=== PATIENT | female | born 1945 | race Caucasian/White ===

== ENCOUNTER 2017-02-19 07:00 | Day surgery (SDC) | payer MEDICARE, OTHER ==
[2017-02-18 10:23] LABS: HEMATOCRIT 43.3 % (34.6-47.8); HEMOGLOBIN 14.1 g/dL (11.7-16.4); WHITE BLOOD COUNT 6.6 x10^3/uL (3.4-10)
[2017-02-18 10:35] LABS: ASPARTATE AMINO TRANSFERASE 19 U/L (15-37); BLOOD UREA NITROGEN 10 mg/dL (7-18)
[~2017-02-19] VITALS: Ht 170.2 cm; Wt 64.0 kg
[~2017-02-19 07:00] MED LIST: ASPI-496 PO; ATOR20TA PO; CETI10TA24 PO; CLON2TAB PO; DOCU100C8 PO; FLUT1DIS3 INH; IBUP200C8 PO; TIOT18CA INH; VALA500T4 PO
[2017-02-19] MEDS ORDERED: BUPIVACAINE/PF-EPI 0.5% 1:200K ONE (07:08)
[2017-02-19] MEDS ORDERED: MIDAZOLAM 1 MG/ML, 2ML ONE (08:20)
[2017-02-19] MEDS ORDERED: FENTANYL PF 250 MCG/5ML ONE (08:20)
[2017-02-19 08:22] VITALS: BP 128/61
[2017-02-19] MEDS ORDERED: LACTATED RINGERS 1,000 ML IV SCH (08:25)
[2017-02-19] MEDS ORDERED: PROAIR (08:27)
[2017-02-19] MEDS ORDERED: GLYCOPYRROLATE 0.2MG/1ML ONE (08:59)
[2017-02-19] MEDS ORDERED: DEXAMETHASONE 4 MG/ML, 1ML ONE (08:59)
[2017-02-19] MEDS ORDERED: NEOSTIGMINE 1 MG/ML, 10ML ONE (08:59)
[2017-02-19] MEDS ORDERED: ROCURONIUM 10 MG/ML ONE (08:59)
[2017-02-19] MEDS ORDERED: ONDANSETRON 2MG/ML, 2ML ONE (08:59)
[2017-02-19] MEDS ORDERED: PHENYLEPHRINE 10 MG/ML ONE (08:59)
[2017-02-19] MEDS ORDERED: PROPOFOL 10 MG/ML, 20ML ONE (08:59)
[2017-02-19] MEDS ORDERED: OXYcodone 5 MG/5 ML ORAL.SOL UDC PO PRN (09:00)
[2017-02-19] MEDS ORDERED: METOCLOPRAMIDE 5 MG/ML, 2ML IV PRN (09:00)
[2017-02-19] MEDS ORDERED: PROMETHAZINE 25 MG/ML, 1ML IV PRN (09:00)
[2017-02-19] MEDS ORDERED: FENTANYL PF 100 MCG/2ML IV PRN (09:00)
[2017-02-19] MEDS ORDERED: ONDANSETRON 2MG/ML, 2ML IVPush PRN (09:00)
[2017-02-19] MEDS ORDERED: HYDROmorphone 1 MG/ML, 1ML IV PRN (09:00)
[2017-02-19] MEDS ORDERED: ACETAMINOPHEN 325 MG TABLET ONE (09:57)
[2017-02-19] MEDS ORDERED: FENTANYL PF 100 MCG/2ML ONE (09:57)
[2017-02-19] MEDS ORDERED: ACETAMINOPHEN 325 MG TABLET PO ONE (10:30)
[2017-02-19] MEDS ORDERED: ACETAMINOPHEN 500 MG TABLET PO ONE (10:30)
[2017-02-19] MEDS ORDERED: BUPIVACAINE LIPOSOME/PF INFIL ONE (11:47)
== END 2017-02-19 11:25 ==
LOC: OUT 07:00
PROVIDERS: ATTEND Surgery
DX: K62.89 Other specified diseases of anus and rectum (principal); J44.9 Chronic obstructive pulmonary disease, unspecified; E78.00 Pure hypercholesterolemia, unspecified; Z98.890 Other specified postprocedural states; Z85.3 Personal history of malignant neoplasm of breast; Z90.710 Acquired absence of both cervix and uterus; Z88.1 Allergy status to other antibiotic agents; Z79.82 Long term (current) use of aspirin
CPT/HCPCS: 36415; 45171; 80053; 85025; 88304; 93005; C9290; J1100; J2250; J2370; J2405; J2704; J2710; J3010; J7120; J3490

== ENCOUNTER → 2017-06-28 | Outpatient (CLI) | payer MEDICARE, OTHER ==
[~2017-06-28] MED LIST changes: +DOCU100C33 PO; -DOCU100C8 PO; +PROAIR
== END | disposition home or self-care (01) ==
LOC: CFH 12:26
PROVIDERS: ATTEND Nurse Practitioner Family
DX: Z12.31 Encounter for screening mammogram for malignant neoplasm of breast (principal); Z85.3 Personal history of malignant neoplasm of breast
CPT/HCPCS: G0202

== ENCOUNTER → 2019-01-04 | Outpatient (CLI) | payer MEDICARE, OTHER | END | disposition home or self-care (01) | LOC: CFH 14:06 | PROVIDERS: ATTEND Family Medicine | DX: Z12.31 Encounter for screening mammogram for malignant neoplasm of breast (principal) | CPT/HCPCS: 77067 ==